=== PATIENT | male | born 1945 | race American Indian/Alaskan Native ===

== ENCOUNTER 2017-10-18 01:09 | Emergency (ER) | payer MEDICARE, MEDICAID ==
--- NOTE | 2017-10-18 01:24 | EDM.PDOC ---
ED HPI GENERAL MEDICAL PROBLEM - General Chief Complaint: Respiratory Problem Stated Complaint: DIFFICULTY BREATHING [id number] Time Seen by Provider: 10/18/17 01:21 Source of Information: Reports: Patient History Limitations: Reports: No Limitations - History of Present Illness INITIAL COMMENTS - FREE TEXT/NARRATIVE: 1 week h/o worsening sob unable lay down has to sit up. denies CP but tightness. spouse states they have appt' on 3rd for dialysis consideration due to his K-failing. - Related Data Allergies Allergy/AdvReac Type Severity Reaction Status Date / Time Penicillins Allergy Hives Verified 10/18/17 01:37 Home Meds: Home Meds Gabapentin [Neurontin] 1,200 cap PO BID 03/31/13 [History] Insulin Aspart [NovoLOG] 5 units SQ TID 03/31/13 [History] oxyCODONE 5 mg PO Q6HR PRN 03/31/13 [History] Simvastatin 20 mg PO DAILY 02/15/14 [History] traMADol [Ultram] 50 mg PO ASDIRECTED PRN 02/15/14 [History] Past Medical History - Past Health History Medical/Surgical History: Denies Medical/Surgical History Cardiovascular History: Reports: High Cholesterol Endocrine/Metabolic History: Reports: Diabetes, Type II Social & Family History - Living Situation & Occupation Living situation: Reports: , with Family Occupation: Disabled ED ROS GENERAL - Review of Systems Review Of Systems: ROS reveals no pertinent complaints other than HPI. ED EXAM, GENERAL - Physical Exam Exam: See Below Exam Limited By: No Limitations General Appearance: Alert, WD/WN, Mild Distress, Other ([place]) Ears: Hearing Grossly Normal Throat/Mouth: Normal Voice, No Airway Compromise Head: Atraumatic Neck: Non-Tender, Full Range of Motion Respiratory/Chest: No Accessory Muscle Use, Decreased Breath Sounds, Rales, Other (bilateral basilar) Cardiovascular: Regular Rate, Rhythm GI/Abdominal: Soft, Non-Tender Extremities: Other (bilateral 3+ edema) Neurological: Alert, Oriented, Normal Cognition, No Motor/Sensory Deficits, Other (gait limited to feet swelling) Psychiatric: Flat Affect Skin Exam: Warm, Dry, Normal Color Lymphatic: No Adenopathy Course - Vital Signs Last Recorded V/S: Last Vital Signs Temp 36.5 C 10/18/17 01:55 Pulse 101 H 10/18/17 01:55 Resp 17 10/18/17 01:55 BP 164/78 H 10/18/17 01:55 Pulse Ox 92 L 10/18/17 01:55 - Orders/Labs/Meds Orders: Active Orders 24 hr Category Date Time Status EKG 12 Lead [EKG Documentation Completion] [RC] STAT Care 10/18/17 01:54 Ordered B-TYPE NATRIURETIC PEPTIDE,BNP [CHEM] Stat Lab 10/18/17 01:22 Results COMPREHENSIVE METABOLIC PN,CMP [CHEM] Stat Lab 10/18/17 01:22 Results TROPONIN I [CHEM] Stat Lab 10/18/17 01:22 Results Labs: Laboratory Tests 10/18/17 10/18/17 10/18/17 Range/Units 01:22 01:22 01:22 WBC 6.0 (5.0-10.0) 10^3/uL RBC 3.67 L (4.6-6.2) 10^6/uL Hgb 10.8 L (14.0-18.0) g/dL Hct 33.2 L (40.0-54.0) % MCV 90.5 D (80-100) fL MCH 29.4 (27.0-34.0) pg MCHC 32.5 L (33.0-35.0) g/dL Plt Count 224 D (150-450) 10^3/uL Neut % (Auto) 62.4 (42.2-75.2) % Lymph % (Auto) 22.7 (20.5-50.1) % [place] % (Auto) 12.3 H (2-8) % Eos % (Auto) 2.3 (1.0-3.0) % Baso % (Auto) 0.3 (0.0-1.0) % Sodium 131 L (135-145) mmol/L Potassium 4.5 (3.6-5.0) mmol/L Chloride 104 (101-111) mmol/L Carbon Dioxide 20.0 L (21.0-31.0) mmol/L Anion Gap 11.5 BUN 39 H (7-18) mg/dL Creatinine 4.0 H D (0.6-1.3) mg/dL Est Cr Clr Drug Dosing 15.21 mL/min Estimated GFR (MDRD) 15 BUN/Creatinine Ratio 9.75 Glucose 165 H (74-105) mg/dL Lactic Acid 0.8 (0.5-2.2) mmol/L Calcium 8.3 L (8.4-10.2) mg/dl Total Bilirubin 0.5 (0.2-1.0) mg/dL AST 15 (10-42) IU/L ALT 10 (10-60) IU/L Alkaline Phosphatase 104 (42-121) IU/L B-Natriuretic Peptide 2780 H (0-100) pg/ml Total Protein 6.0 L (6.7-8.2) g/dl Albumin 2.7 L (3.2-5.5) g/dl Globulin 3.3 Albumin/Globulin Ratio 0.82 Meds: Medications Discontinued Medications Generic Name Dose Route Start Last Admin Trade Name Freq PRN Reason Stop Dose Admin Furosemide 40 mg 10/18/17 01:37 10/18/17 01:49 Lasix IVPUSH 10/18/17 01:38 40 mg NOW ONE Administration - Re-Assessments/Exams Free Text/Narrative Re-Assessment/Exam: 10/18/17 01:[address] Escobedo @ who kindly accepted pt. Departure - Departure Time of Disposition: 01:58 Disposition: DC/Tfer to [facility] 02 Condition: Fair Clinical Impression: Congenital heart disease in adult, Pulmonary edema cardiac cause Renal failure Qualifiers: Renal failure chronicity: unspecified chronicity Qualified Code(s): N19 - Unspecified kidney failure - Discharge Information Forms: Interfacility Transfer EMTALA - My Orders Last 24 Hours: My Active Orders 10/18/17 01:22 B-TYPE NATRIURETIC PEPTIDE,BNP [CHEM] Stat COMPREHENSIVE METABOLIC PN,CMP [CHEM] Stat TROPONIN I [CHEM] Stat 10/18/17 01:54 EKG 12 Lead [EKG Documentation Completion] [RC] STAT - Assessment/Plan Last 24 Hours: My Active Orders 10/18/17 01:22 B-TYPE NATRIURETIC PEPTIDE,BNP [CHEM] Stat COMPREHENSIVE METABOLIC PN,CMP [CHEM] Stat TROPONIN I [CHEM] Stat 10/18/17 01:54 EKG 12 Lead [EKG Documentation Completion] [RC] STAT
[2017-10-18] MEDS ORDERED: Furosemide 40 MG/4 ML VIAL IVPUSH ONE (01:37)
[2017-10-18 01:49] LABS: ANION GAP 11.5
[2017-10-18 01:57] VITALS: BP 164/78
--- NOTE | 2017-10-19 07:25 | EKG ---
10/18/2017- NEGIN AQUINO - EKG per my reading, shows sinus rhythm at the rate of 100 with inverted lateral T-waves. [facility] /[id number]
== END 2017-10-18 02:30 ==
LOC: DL.ED 01:09
DX: Q24.9 Congenital malformation of heart, unspecified (principal); E78.00 Pure hypercholesterolemia, unspecified; E11.9 Type 2 diabetes mellitus without complications; N19 Unspecified kidney failure; Z88.0 Allergy status to penicillin; Z79.899 Other long term (current) drug therapy; Z79.84 Long term (current) use of oral hypoglycemic drugs
CPT/HCPCS: 36415; 71045; 80053; 83605; 83880; 84484; 85025; 93005; 93010; 96374; 99285; J1940; 99284

== ENCOUNTER 2018-01-01 15:01 | Emergency (ER) | payer MEDICARE, MEDICAID ==
[2018-01-01 15:14] VITALS: BP 151/83
[2018-01-01] MEDS ORDERED: Sodium Chloride 0.9% 10 ML Syringe FLUSH PRN ×2 (15:44→17:46)
[2018-01-01 16:23] LABS: ANION GAP 12.9
--- NOTE | 2018-01-01 17:20 | EDM.PDOC ---
"Scribed by Monserrat Flores 01/01/18 1720 for Zhanna Devlin MD ED HPI GENERAL MEDICAL PROBLEM - General Chief Complaint: General Stated Complaint: DIZZY,HARD TO BREATH [id number] Time Seen by Provider: 01/01/18 15:11 Source of Information: Reports: Patient, RN, RN Notes Reviewed History Limitations: Reports: No Limitations - History of Present Illness INITIAL COMMENTS - FREE TEXT/NARRATIVE: Patient presents to ER with complaint of cough, loss of appetite, not eating or drinking, altered mental status and hallucinations. ERSA on dialysis. 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 He has missed dialysis 2 times this week (has not had dialysis since being discharged) . He has been coming to the hospital once daily at 2 p.m. for IV antibiotics. Family states that the patient has been seeing and talking to relatives. He fell on 12/30/17 at home in his bathroom and hit his head. They do not know if he lost consciousness. His confusion has been worse since hitting his head. Denies any fevers and chills. Cough has been nonproductive. Patient cannot give a reliable due to confusion. History is obtained from family members. Onset: Gradual Duration: Getting Worse Location: Reports: Generalized Severity: Severe Improves with: Reports: None Worsens with: Reports: None Associated Symptoms: Reports: No Other Symptoms - Related Data Allergies Allergy/AdvReac Type Severity Reaction Status Date / Time Penicillins Allergy Hives Verified 12/28/17 14:30 Home Meds: Home Meds Insulin Aspart [NovoLOG] 8 units SQ TID 03/31/13 [History] Simvastatin 20 mg PO DAILY 02/15/14 [History] traMADol [Ultram] 50 mg PO ASDIRECTED PRN 02/15/14 [History] Acetaminophen/oxyCODONE [Percocet 325-10 MG] 10 - 325 mg PO ASDIRECTED 12/28/17 [History] Aspirin 81 mg PO DAILY 12/28/17 [History] Carvedilol 25 mg PO DAILY 12/28/17 [History] Cyanocobalamin/FA/Pyridoxine [B Complex-Folic Acid] 1 cap PO DAILY 12/28/17 [ History] Gabapentin [Neurontin] 1,200 mg PO TID 12/28/17 [History] Insulin Glargine,Hum.Rec.Anlog [Lantus Solostar] 15 unit SQ DAILY 12/28/17 [ History] Losartan [Cozaar] 25 mg PO DAILY 12/28/17 [History] Past Medical History - Past Health History Medical/Surgical History: Denies Medical/Surgical History HEENT History: Reports: Cataract, Impaired Vision Cardiovascular History: Reports: High Cholesterol Gastrointestinal History: Reports: GERD Genitourinary History: Reports: Acute Renal Failure, Dialysis, Other (See Below) Other Genitourinary History: Starting dialysis on the Oct. Endocrine/Metabolic History: Reports: Diabetes, Type II - Past Surgical History Head Surgeries/Procedures: Reports: Shunt, Other (See Below) HEENT Surgical History: Reports: Cataract Surgery Social & Family History - Family History Family Medical History: Noncontributory - Caffeine Use Caffeine Use: Reports: None - Living Situation & Occupation Living situation: Reports: , with Family Occupation: Disabled ED ROS GENERAL - Review of Systems Review Of Systems: ROS reveals no pertinent complaints other than HPI. ED EXAM, GENERAL - Physical Exam Exam: See Below Exam Limited By: No Limitations General Appearance: Alert, Thin, Cachetic, Other (chronically ill appearing) Eye Exam: Bilateral Eye: EOMI, Nystagmus, PERRL Ears: Normal External Exam Nose: Normal Inspection, Normal Mucosa, No Blood Throat/Mouth: Normal Voice, No Airway Compromise, Other (very dry oral membranes. ) Head: Atraumatic, Normocephalic Neck: Normal Inspection, Supple, Non-Tender, Full Range of Motion Respiratory/Chest: No Respiratory Distress, No Accessory Muscle Use, Chest Non- Tender, Decreased Breath Sounds, Crackles, Rales. No: Rhonchi, Wheezing Cardiovascular: Regular Rate, Rhythm, No Edema GI/Abdominal: Normal Bowel Sounds, Soft, No Distention, Pelvis Stable, Tender ( mild diffuse abdominal tenderness,no peritoneal signs. ). No: Guarding, Rigid, Rebound (Male) Exam: Deferred Rectal (Males) Exam: Deferred Extremities: Normal Inspection, No Pedal Edema Neurological: Alert, Oriented (to person only), No Motor/Sensory Deficits, Confused, Disoriented (to time and place), Other (generalized weakness) Psychiatric: Flat Affect Skin Exam: Dry, Intact, Cool, Pallor EKG INTERPRETATION EKG Date: 01/01/18 Time: 15:47 Rhythm: Other (sinus rhythm) Rate (Beats/Min): 91 [place]: Normal P-Wave: Present QRS: Other (abnormal R progression, consider ASMI or lead placement) ST-T: Other (nonspecific T abnormalities, lateral leads.) QT: Normal [place]/PQ Interval: short [place] interval,accelerated AV conduction. Course - Vital Signs Last Recorded V/S: Last Vital Signs Temp 36.2 C 01/01/18 15:13 Pulse 90 01/01/18 15:13 Resp 10 L 01/01/18 15:13 BP 151/83 H 01/01/18 15:13 Pulse Ox 79 L 01/01/18 15:13 - Orders/Labs/Meds Orders: Active Orders 24 hr Category Date Time Status EKG 12 Lead [EKG Documentation Completion] [RC] STAT Care 01/01/18 15:45 Active Peripheral IV Care [RC] . DIRECTED Care 01/01/18 15:45 Active Chest 1V Frontal [CR] Stat Exams 01/01/18 15:45 Taken Head wo Cont [CT] Stat Exams 01/01/18 15:47 Taken Sodium Chloride 0.9% [Saline Flush] Med 01/01/18 15:44 Active 10 ml FLUSH ASDIRECTED PRN Peripheral IV Insertion Adult [OM.PC] Stat Oth 01/01/18 15:44 Ordered Medication Orders Sodium Chloride (Saline Flush) 10 ml FLUSH ASDIRECTED PRN PRN Reason: Keep Vein Open Last Admin: 01/01/18 17:00 Dose: 10 ml Labs: Laboratory Tests 01/01/18 01/01/18 Range/Units 15:56 15:56 WBC 6.3 (5.0-10.0) 10^3/uL RBC 3.57 L (4.6-6.2) 10^6/uL Hgb 10.0 L (14.0-18.0) g/dL Hct 32.1 L (40.0-54.0) % MCV 89.9 (80-100) fL MCH 28.0 (27.0-34.0) pg MCHC 31.2 L (33.0-35.0) g/dL Plt Count 235 (150-450) 10^3/uL Neut % (Auto) 73.3 (42.2-75.2) % Lymph % (Auto) 17.4 L (20.5-50.1) % [place] % (Auto) 7.4 (2-8) % Eos % (Auto) 1.6 (1.0-3.0) % Baso % (Auto) 0.3 (0.0-1.0) % Sodium 131 L (135-145) mmol/L Potassium 4.9 (3.6-5.0) mmol/L Chloride 98 L (101-111) mmol/L Carbon Dioxide 25.0 (21.0-31.0) mmol/L Anion Gap 12.9 BUN 38 H (7-18) mg/dL Creatinine 3.7 H (0.6-1.3) mg/dL Est Cr Clr Drug Dosing 15.27 mL/min Estimated GFR (MDRD) 16 BUN/Creatinine Ratio 10.27 Glucose 177 H (74-105) mg/dL Calcium 8.7 (8.4-10.2) mg/dl Phosphorus 3.7 (2.5-4.6) mg/dL Magnesium 1.9 (1.8-2.5) mg/dL Total Bilirubin 0.4 (0.2-1.0) mg/dL AST 15 (10-42) IU/L ALT 14 (10-60) IU/L Alkaline Phosphatase 94 (42-121) IU/L B-Natriuretic Peptide 4200 H (0-100) pg/ml Total Protein 6.3 L (6.7-8.2) g/dl Albumin 2.5 L (3.2-5.5) g/dl Globulin 3.8 Albumin/Globulin Ratio 0.66 Meds: Medications Generic Name Dose Route Start Last Admin Trade Name Freq PRN Reason Stop Dose Admin Sodium Chloride 10 ml 01/01/18 15:44 01/01/18 17:00 Saline Flush FLUSH 10 ml ASDIRECTED PRN Administration Keep Vein Open - Radiology Interpretation Free Text/Narrative:: [facility] Final Radiology Report Call: [phone] assistance Online chat: [email or web address] Name: NEGIN AQUINO Age: 72Years M Date: 01/01/2018 SSN: -- : 1945 Study: CT HEAD WO Requesting Physician: ZHANNA DEVLIN Images: 144 Addl Studies: Provided Clinical History: Contrast: Without Contrast Medium: Contrast Amount: Contrast Method: Page 1 of 2 EXAM: CT Head Without Intravenous Contrast EXAM DATE/TIME: 01/01/2018 4:11 PM CLINICAL HISTORY: 72 years old, male; Signs and symptoms; Other: Confused since fall w/head injury on 12/30/17 TECHNIQUE: Axial computed tomography images of the head/brain without intravenous contrast. All CT scans at this facility use at least one of these dose optimization techniques: automated exposure control; mA and/or kV adjustment per patient size (includes targeted exams where dose is matched to clinical indication); or iterative reconstruction. Coronal and sagittal reformatted images were created and reviewed. COMPARISON: CT Head wo Cont 02/15/2014 1:03 PM FINDINGS: Brain: There is parenchymal volume loss consistent with patient's age. Also demonstrated are white matter changes in the subcortical, centrum semiovale and periventricular white matter consistent with age related small vessel microangiopathic gliosis. Chronic lacunar infarct right paraventricular region. Ventricles: The degree of ventricular dilatation is normal for age. No pathologic enlargement demonstrated. Bones/joints: Normal. No acute fracture. Sinuses: Normal as visualized. No acute sinusitis. Mastoid air cells: Normal as visualized. No mastoid effusion. Soft tissues: Normal. IMPRESSION: NEGIN AQUINO | Final Radiology Report CONFIDENTIALITY STATEMENT This report is intended only for use by the referring physician, and only in accordance with law. If you received this in error, call [phone]. Page 2 of 2 1. There is parenchymal volume loss consistent with patient's age. Also demonstrated are white matter changes in the subcortical, centrum semiovale and periventricular white matter consistent with age related small vessel microangiopathic gliosis. 2. Chronic lacunar infarct right paraventricular region. Thank you for allowing us to participate in the care of your patient. Dictated and Authenticated by: Jim Faulkner MD 01/01/2018 5:16 PM Central Time ([place] & [place]) [facility] Final Radiology Report Call: [phone] assistance Online chat: [email or web address] Name: NEGIN AQUINO Age: 72Years M Date: 01/01/2018 SSN: -- : 1945 Study: XR CHEST 1 VIEW Requesting Physician: ZHANNA DEVLIN Images: 1 Addl Studies: Provided Clinical History: Contrast: Contrast Medium: Contrast Amount: Contrast Method: CONFIDENTIALITY STATEMENT This report is intended only for use by the referring physician, and only in accordance with law. If you received this in error, call [phone]. Page 1 of 1 EXAM: XR Chest, 1 View EXAM DATE/TIME: 01/01/2018 4:16 PM CLINICAL HISTORY: 72 years old, male; Signs and symptoms; Cough and other: Weakness--esrd missed dialysis twice this week TECHNIQUE: XR of the chest, 1 view. COMPARISON: CR Chest 1V Frontal 10/18/2017 1:30 AM FINDINGS: Lungs: Bibasilar infiltrates. Pleural space: Bilateral pleural effusions. Heart/Mediastinum: Unremarkable. No cardiomegaly. Vasculature: Cephalization of vascular flow consistent with acute CHF. Bones/joints: Unremarkable for patient's age. IMPRESSION: Pleural effusions, bibasilar infiltrates, cephalization of vascular flow consistent with acute CHF. Thank you for allowing us to participate in the care of your patient. Dictated and Authenticated by: Jim Faulkner MD 01/01/2018 5:17 PM Central Time ([place] & [place]) CT Results Date: 01/01/18 Departure - Departure Time of Disposition: 17:04 Disposition: DC/Tfer to Acute Hospital 02 Condition: Serious Clinical Impression: ESRD (end stage renal disease) on dialysis, Noncompliance with renal dialysis, Hypoxia Fluid overload Qualifiers: Hypervolemia type: unspecified Qualified Code(s): E87.70 - Fluid overload, unspecified Altered mental status Qualifiers: Altered mental status type: transient alteration of awareness Qualified Code(s) : R40.4 - Transient alteration of awareness Acute on chronic congestive heart failure Qualifiers: Heart failure type: unspecified Qualified Code(s): I50.9 - Heart failure, unspecified - Discharge Information *PRESCRIPTION DRUG MONITORING PROGRAM REVIEWED*: No *COPY OF PRESCRIPTION DRUG MONITORING REPORT IN PATIENT ANTON: No Referrals: PCP,None [Ordering Only Provider] - Forms: ED Department Discharge, Interfacility Transfer EMTALA - My Orders Last 24 Hours: My Active Orders 01/01/18 15:44 Sodium Chloride 0.9% [Saline Flush] 10 ml FLUSH ASDIRECTED PRN Peripheral IV Insertion Adult [OM.PC] Stat 01/01/18 15:45 EKG 12 Lead [EKG Documentation Completion] [RC] STAT Peripheral IV Care [RC] . DIRECTED Chest 1V Frontal [CR] Stat 01/01/18 15:47 Head wo Cont [CT] Stat - Assessment/Plan Last 24 Hours: My Active Orders 01/01/18 15:44 Sodium Chloride 0.9% [Saline Flush] 10 ml FLUSH ASDIRECTED PRN Peripheral IV Insertion Adult [OM.PC] Stat 01/01/18 15:45 EKG 12 Lead [EKG Documentation Completion] [RC] STAT Peripheral IV Care [RC] . DIRECTED Chest 1V Frontal [CR] Stat 01/01/18 15:47 Head wo Cont [CT] Stat I have read and agree with the documentation that has been completed regarding this visit. By signing this record, I attest that the documentation was completed in my physical presence and is an accurate record of the encounter."
[2018-01-01] MEDS ORDERED: fentaNYL 100 MCG/2 ML SDV IVPUSH ONE (17:45)
[2018-01-01] MEDS ORDERED: Ondansetron 4 MG/2 ML SDV IV ONE (17:45)
[2018-01-01] MEDS ORDERED: Sodium Chloride 0.9% 1,000 ML IV ONE (17:45)
== END 2018-01-01 19:22 ==
LOC: DL.ED 15:01
DX: R09.02 Hypoxemia (principal); N18.6 End stage renal disease; I50.9 Heart failure, unspecified; E87.70 Fluid overload, unspecified; E11.22 Type 2 diabetes mellitus with diabetic chronic kidney disease; R40.4 Transient alteration of awareness; Z91.15 Patient's noncompliance with renal dialysis; Z99.2 Dependence on renal dialysis; Z88.0 Allergy status to penicillin
CPT/HCPCS: 36415; 70450; 71045; 80053; 83735; 83880; 84100; 85025; 93005; 99285; J7050

== ENCOUNTER 2018-09-06 13:45 | Emergency (ER) | payer MEDICARE, MEDICAID ==
[2018-09-06 14:05] VITALS: BP 154/61
--- NOTE | 2018-09-06 14:16 | EDM.PDOC ---
ED HPI GENERAL MEDICAL PROBLEM - General Chief Complaint: Abdominal Pain Stated Complaint: Constipation Time Seen by Provider: 09/06/18 14:16 Source of Information: Reports: Patient, Family, Old Records, RN, RN Notes Reviewed History Limitations: Reports: No Limitations - History of Present Illness INITIAL COMMENTS - FREE TEXT/NARRATIVE: Pt presents to ER from home by POV with c/o constipation and abdominal "fullness ". Pt thinks his last BM was about 4 days ago and was hard. He denies significant abdominal pain, N/V, or rectal bleeding. Pt has ESRD on dialysis Mon /Wed/Fri, and has not missed any dialysis. He was recently discharged home from the assisted, but a family member has called social media manager to report that the pt is a "vulnerable adult" and is not able to be safely managed at home. A social insurance adviser will be coming to interview the pt and family in the ER. Onset: Unknown/Unsure Duration: Constant Location: Reports: Abdomen Quality: Reports: Other (Cramps) Severity: Mild Improves with: Reports: None Worsens with: Reports: None Associated Symptoms: Reports: No Other Symptoms Abdomen Pain Score (Numeric/FACES): 6 - Related Data Allergies Allergy/AdvReac Type Severity Reaction Status Date / Time Penicillins Allergy Hives Verified 09/06/18 13:59 Home Meds: Home Meds Acetaminophen/oxyCODONE [Percocet 325-10 MG] 10 - 325 mg PO ASDIRECTED 12/28/17 [History] Cyanocobalamin/FA/Pyridoxine [B Complex-Folic Acid] 1 cap PO DAILY 12/28/17 [ History] Gabapentin [Neurontin] 300 mg PO BID 12/28/17 [History] Sevelamer Carbonate 800 mg PO TID 09/06/18 [History] Torsemide [Demadex] 40 mg PO DAILY 09/06/18 [History] Past Medical History - Past Health History Medical/Surgical History: Denies Medical/Surgical History HEENT History: Reports: Cataract, Impaired Vision Cardiovascular History: Reports: High Cholesterol Respiratory History: Reports: None Gastrointestinal History: Reports: GERD Genitourinary History: Reports: Acute Renal Failure, Dialysis, Other (See Below) Other Genitourinary History: Starting dialysis on the Oct. Other Musculoskeletal History: left lower leg amputated Neurological History: Reports: None Psychiatric History: Reports: None Endocrine/Metabolic History: Reports: Diabetes, Type II Hematologic History: Reports: None Immunologic History: Reports: None Oncologic (Cancer) History: Reports: None Dermatologic History: Reports: None - Past Surgical History Head Surgeries/Procedures: Reports: Shunt, Other (See Below) HEENT Surgical History: Reports: Cataract Surgery Musculoskeletal Surgical History: Reports: Amputation Social & Family History - Family History Family Medical History: Noncontributory - Tobacco Use Smoking Status *Q: Current Every Day Smoker Years of Tobacco use: 53 Packs/Tins Daily: 0.5 Second Hand Smoke Exposure: No - Caffeine Use Caffeine Use: Reports: Coffee - Recreational Drug Use Recreational Drug Use: No - Living Situation & Occupation Living situation: Reports: , with Family Occupation: Disabled ED ROS GENERAL - Review of Systems Review Of Systems: ROS reveals no pertinent complaints other than HPI. ED EXAM, GI/ABD - Physical Exam Exam: See Below Exam Limited By: No Limitations General Appearance: Alert, No Apparent Distress, Other (Frail, elderly appearing male) Throat/Mouth: Normal Inspection, Normal Voice, No Airway Compromise Head: Atraumatic, Normocephalic Neck: Normal Inspection Respiratory/Chest: No Respiratory Distress, Lungs Clear, No Accessory Muscle Use , Decreased Breath Sounds Cardiovascular: Regular Rate, Rhythm GI/Abdominal Exam: Normal Bowel Sounds, Soft, No Distention, No Abnormal Bruit, Tender (mild left sided abdomen). No: Guarding, Rigid, Rebound (Male) Exam: Deferred Rectal (Males) Exam: Deferred Back Exam: Normal Inspection Extremities: Normal Inspection Neurological: Alert, Oriented, No Motor/Sensory Deficits Psychiatric: Normal Mood Skin Exam: Warm, Dry, Intact, Normal Color, No Rash Course - Vital Signs Last Recorded V/S: Last Vital Signs Temp 98.2 F 09/06/18 14:04 Pulse 86 09/06/18 14:04 Resp 20 09/06/18 14:04 BP 154/61 H 09/06/18 14:04 Pulse Ox 100 09/06/18 14:04 - Orders/Labs/Meds Orders: Active Orders 24 hr Category Date Time Status Enema [RC] ASDIRECTED Care 09/06/18 15:11 Active UA RFX CHARISSA AND CULT IF INDIC [URIN] Stat Lab 09/06/18 14:17 Ordered Labs: Laboratory Tests 09/06/18 09/06/18 Range/Units 14:42 14:42 WBC 7.2 (5.0-10.0) 10^3/uL RBC 3.37 L (4.6-6.2) 10^6/uL Hgb 10.1 L (14.0-18.0) g/dL Hct 31.5 L (40.0-54.0) % MCV 93.5 D (80-100) fL MCH 30.0 (27.0-34.0) pg MCHC 32.1 L (33.0-35.0) g/dL Plt Count 193 (150-450) 10^3/uL Neut % (Auto) 73.7 (42.2-75.2) % Lymph % (Auto) 12.2 L (20.5-50.1) % [place] % (Auto) 11.0 H (2-8) % Eos % (Auto) 2.5 (1.0-3.0) % Baso % (Auto) 0.6 (0.0-1.0) % Sodium 138 (135-145) mmol/L Potassium 4.1 (3.6-5.0) mmol/L Chloride 100 L (101-111) mmol/L Carbon Dioxide 26.0 (21.0-31.0) mmol/L Anion Gap 16.1 BUN 33 H (7-18) mg/dL Creatinine 4.1 H (0.6-1.3) mg/dL Est Cr Clr Drug Dosing 15.23 mL/min Estimated GFR (MDRD) 14 BUN/Creatinine Ratio 8.04 Glucose 206 H (74-105) mg/dL Calcium 8.6 (8.4-10.2) mg/dl Total Bilirubin 0.5 (0.2-1.0) mg/dL AST 16 (10-42) IU/L ALT 13 (10-60) IU/L Alkaline Phosphatase 100 (42-121) IU/L Total Protein 6.3 L (6.7-8.2) g/dl Albumin 3.0 L (3.2-5.5) g/dl Globulin 3.3 Albumin/Globulin Ratio 0.91 Amylase 32 (28-100) U/L Lipase 28 (22-51) U/L Meds: Medications Discontinued Medications Generic Name Dose Route Start Last Admin Trade Name Freq PRN Reason Stop Dose Admin Lactulose 20 gm 09/06/18 15:10 09/06/18 16:08 Cephulac PO 09/06/18 15:11 20 gm ONETIME ONE Administration - Radiology Interpretation Free Text/Narrative:: [facility] [place] [facility] Final Radiology Report Call: [phone] assistance Online chat: [email or web address] Name: NEGIN AQUINO Age: 73Years M Date: 09/06/2018 SSN: -- : [id number] Study: XR ABDOMEN COMPLETE W DECUBITUS &/OR ERECT VIEWS Requesting Physician: ZHANNA STEVENS Images: 3 Addl Studies: Provided Clinical History: Contrast: Contrast Medium: Contrast Amount: Contrast Method: Page 1 of 2 EXAM: XR Abdomen, 3 or More Views EXAM DATE/TIME: 09/06/2018 2:22 PM CLINICAL HISTORY: 73 years old, male; Pain and signs and symptoms; Constipation; Abdominal pain; Generalized TECHNIQUE: Imaging protocol: Frontal view of the abdomen/pelvis with upright view of the abdomen and one or more additional views. COMPARISON: No relevant prior studies available. FINDINGS: Gastrointestinal tract: Moderate feces is present throughout the colon. No significant distention of the large or small bowel. Intraperitoneal space: Normal. No free air. Bones/joints: Sclerosis is noted within the right femoral neck. IMPRESSION: 1. No acute findings are appreciated. 2. Sclerosis is noted within the right femoral neck. Recommend radiographs of the right hip for further evaluation Thank you for allowing us to participate in the care of your patient. NEGIN AQUINO | Final Radiology Report CONFIDENTIALITY STATEMENT This report is intended only for use by the referring physician, and only in accordance with law. If you received this in error, call [phone]. Page 2 of 2 Dictated and Authenticated by: Dennis Marroquin MD 09/06/2018 2:49 PM Central Time ([place] & [place]) - Re-Assessments/Exams Free Text/Narrative Re-Assessment/Exam: 09/06/18 17:49 Pt had large BM following enema. Pt feels well and wishes to be d/c'd home. residential worker finds that pt may be safely d/c'd home at this time and will continue working with the pt and family to find the best solution for his long term care pharmacist care and housing needs. Departure - Departure Time of Disposition: 17:52 Disposition: Home, Self-Care 01 Condition: Good Clinical Impression: Constipation Qualifiers: Constipation type: other constipation type Qualified Code(s): K59.09 - Other constipation - Discharge Information *PRESCRIPTION DRUG MONITORING PROGRAM REVIEWED*: No *COPY OF PRESCRIPTION DRUG MONITORING REPORT IN PATIENT ANTON: No Instructions: Constipation, Adult, High-Fiber Diet Forms: ED Department Discharge Additional Instructions: Use an over the counter stool softener as needed. Follow up in clinic if constipation becomes an ongoing problem. Return to ER if worse at any time. - My Orders Last 24 Hours: My Active Orders 09/06/18 14:17 UA RFX CHARISSA AND CULT IF INDIC [URIN] Stat 09/06/18 15:11 Enema [RC] ASDIRECTED - Assessment/Plan Last 24 Hours: My Active Orders 09/06/18 14:17 UA RFX CHARISSA AND CULT IF INDIC [URIN] Stat 09/06/18 15:11 Enema [RC] ASDIRECTED
[2018-09-06] MEDS ORDERED: Lactulose Soln 10 GM/15 ML 30 ML UD Cup PO ONE (15:10)
[2018-09-06 15:12] LABS: ANION GAP 16.1
== END 2018-09-06 15:50 | disposition home or self-care (01) ==
LOC: DL.ED 13:45
DX: K59.09 Other constipation (principal); E78.00 Pure hypercholesterolemia, unspecified; K21.9 Gastro-esophageal reflux disease without esophagitis; E11.9 Type 2 diabetes mellitus without complications; F17.210 Nicotine dependence, cigarettes, uncomplicated; Z88.0 Allergy status to penicillin; Z79.899 Other long term (current) drug therapy
CPT/HCPCS: 36415; 74021; 80053; 82150; 83690; 85025; 99284; A9270

== ENCOUNTER 2019-01-20 13:30 | Emergency (ER) | payer MEDICARE, MEDICAID ==
[2019-01-20 15:08] VITALS: BP 153/89; PULSE 89
--- NOTE | 2019-01-20 16:01 | EDM.PDOC ---
ED HPI GENERAL MEDICAL PROBLEM - General Chief Complaint: Abdominal Pain Stated Complaint: UPSET STOMACH Time Seen by Provider: 01/20/19 16:01 Source of Information: Reports: Patient, Family, RN, RN Notes Reviewed History Limitations: Reports: No Limitations - History of Present Illness INITIAL COMMENTS - FREE TEXT/NARRATIVE: patient presents to the ER with a complaint of sore upset stomach for 3 days. Patient admits to shortness of breath, fever, chills at times. Patient states he is on chronic hemodialysis, last dialysis was Tuesday 01/16. Patient denies N/ V/D,chest pain, cough. Patient states last BM was this morning and was normal for him. Onset: Gradual Upper Abdomen Pain Score (Numeric/FACES): 6 - Related Data Allergies Allergy/AdvReac Type Severity Reaction Status Date / Time Penicillins Allergy Hives Verified 01/20/19 14:24 Home Meds: Home Meds Acetaminophen/oxyCODONE [Percocet 325-10 MG] 10 - 325 mg PO ASDIRECTED 12/28/17 [History] Cyanocobalamin/FA/Pyridoxine [B Complex-Folic Acid] 1 cap PO DAILY 12/28/17 [ History] Gabapentin [Neurontin] 300 mg PO BID 12/28/17 [History] Sevelamer Carbonate 800 mg PO TID 09/06/18 [History] Torsemide [Demadex] 40 mg PO DAILY 09/06/18 [History] Past Medical History - Past Health History Medical/Surgical History: Denies Medical/Surgical History HEENT History: Reports: Cataract, Impaired Vision Cardiovascular History: Reports: High Cholesterol Respiratory History: Reports: None Gastrointestinal History: Reports: GERD Genitourinary History: Reports: Acute Renal Failure, Dialysis, Other (See Below) Other Genitourinary History: Starting dialysis on the Oct. Other Musculoskeletal History: left lower leg amputated Neurological History: Reports: None Psychiatric History: Reports: None Endocrine/Metabolic History: Reports: Diabetes, Type II Hematologic History: Reports: None Immunologic History: Reports: None Oncologic (Cancer) History: Reports: None Dermatologic History: Reports: None - Past Surgical History Head Surgeries/Procedures: Reports: Shunt, Other (See Below) HEENT Surgical History: Reports: Cataract Surgery Musculoskeletal Surgical History: Reports: Amputation Social & Family History - Family History Family Medical History: Noncontributory - Tobacco Use Smoking Status *Q: Current Every Day Smoker Years of Tobacco use: 50 Packs/Tins Daily: 1.5 - Caffeine Use Caffeine Use: Reports: Coffee - Recreational Drug Use Recreational Drug Use: No - Living Situation & Occupation Living situation: Reports: , with Family Occupation: Disabled ED ROS GENERAL - Review of Systems Review Of Systems: ROS reveals no pertinent complaints other than HPI. ED EXAM, GI/ABD - Physical Exam Exam: See Below Exam Limited By: No Limitations General Appearance: Alert, WD/WN, No Apparent Distress Eyes: Bilateral: Normal Appearance, EOMI Ears: Normal External Exam, Hearing Grossly Normal Nose: Normal Inspection, Normal Mucosa, No Blood Throat/Mouth: Normal Inspection, Normal Lips, Normal Teeth, Normal Gums, Normal Oropharynx, Normal Voice, No Airway Compromise Head: Atraumatic, Normocephalic Neck: Normal Inspection, Supple, Non-Tender, Full Range of Motion Respiratory/Chest: No Respiratory Distress, Normal Breath Sounds, No Accessory Muscle Use, Chest Non-Tender, Crackles (bases bilaterally) Cardiovascular: Normal Peripheral Pulses, Regular Rate, Rhythm, No Edema, No Gallop, No JVD, No Murmur, No Rub GI/Abdominal Exam: Normal Bowel Sounds, Soft, Non-Tender, No Organomegaly, No Distention, No Abnormal Bruit, No Mass, Pelvis Stable (Male) Exam: Deferred Rectal (Males) Exam: Deferred Back Exam: Normal Inspection, Full Range of Motion, NT Extremities: Normal Inspection, Normal Range of Motion, Non-Tender, No Pedal Edema, Normal Capillary Refill, Other (left BKA) Neurological: Alert, Oriented, CN II-XII Intact, Normal Cognition, Normal Gait, Normal Reflexes, No Motor/Sensory Deficits Psychiatric: Normal Affect, Normal Mood Skin Exam: Warm, Dry, Intact, Normal Color, No Rash Lymphatic: No Adenopathy Course - Vital Signs Last Recorded V/S: Last Vital Signs Temp 98.3 F 01/20/19 13:45 Pulse 89 01/20/19 13:45 Resp 16 01/20/19 13:45 BP 153/89 H 01/20/19 13:45 Pulse Ox 97 01/20/19 13:45 - Orders/Labs/Meds Orders: Active Orders 24 hr Category Date Time Status Peripheral IV Care [RC] . DIRECTED Care 01/20/19 17:20 Active Peripheral IV Insertion Adult [OM.PC] Stat Oth 01/20/19 17:20 Ordered Labs: Laboratory Tests 01/20/19 01/20/19 Range/Units 16:16 16:16 WBC 5.2 (5.0-10.0) 10^3/uL RBC 3.75 L (4.6-6.2) 10^6/uL Hgb 11.7 L D (14.0-18.0) g/dL Hct 35.4 L (40.0-54.0) % MCV 94.4 (80-100) fL MCH 31.2 (27.0-34.0) pg MCHC 33.1 (33.0-35.0) g/dL Plt Count 179 (150-450) 10^3/uL Neut % (Auto) 68.4 (42.2-75.2) % Lymph % (Auto) 18.7 L (20.5-50.1) % [place] % (Auto) 9.8 H (2-8) % Eos % (Auto) 2.1 (1.0-3.0) % Baso % (Auto) 1.0 (0.0-1.0) % Sodium 131 L (135-145) mmol/L Potassium 5.1 H (3.6-5.0) mmol/L Chloride 95 L (101-111) mmol/L Carbon Dioxide 25.0 (21.0-31.0) mmol/L Anion Gap 16.1 BUN 45 H (7-18) mg/dL Creatinine 5.4 H D (0.6-1.3) mg/dL Est Cr Clr Drug Dosing TNP Estimated GFR (MDRD) 10 BUN/Creatinine Ratio 8.33 Glucose 134 H (74-105) mg/dL Calcium 9.1 (8.4-10.2) mg/dl Total Bilirubin 1.0 (0.2-1.0) mg/dL AST 18 (10-42) IU/L ALT 14 (10-60) IU/L Alkaline Phosphatase 111 (42-121) IU/L B-Natriuretic Peptide 4030 H (0-100) pg/ml Total Protein 7.0 (6.7-8.2) g/dl Albumin 3.7 (3.2-5.5) g/dl Globulin 3.3 Albumin/Globulin Ratio 1.12 Meds: Medications Discontinued Medications Generic Name Dose Route Start Last Admin Trade Name Ashley PRN Reason Stop Dose Admin Bumetanide 4 mg 01/20/19 17:20 01/20/19 17:42 Bumex IVPUSH 01/20/19 17:21 4 mg ONETIME ONE Administration Sodium Chloride 10 ml 01/20/19 17:20 01/20/19 17:49 Saline Flush FLUSH 10 ml ASDIRECTED PRN Administration Keep Vein Open - Radiology Interpretation Free Text/Narrative:: Chest xray: FINDINGS: Lungs: Persistent unchanged moderate interstitial edema. Basilar opacities are unchanged. Pleural space: Unremarkable. Possible small left pleural effusion. No pneumothorax. Heart/Mediastinum: Unremarkable. No cardiomegaly. Bones/joints: Unremarkable. IMPRESSION: 1. No significant change. Persistent moderate interstitial edema. 2. Basilar opacities most likely represent consolidation or atelectasis, less likely air space disease related to edema. Thank you for allowing us to participate in the care of your patient. Dictated and Authenticated by: Damian Ortiz MD 01/20/2019 4:27 PM Central Time ([place] & [place]) See rad report - Re-Assessments/Exams Free Text/Narrative Re-Assessment/Exam: 01/20/19 17:19 discussed patient case with Dr. HOROWITZ. he states to give the patient IV diuretic while in the ER and he may be discharged home to follow-up with dialysis tomorrow. Departure - Departure Time of Disposition: 17:45 Disposition: Home, Self-Care 01 Condition: Fair Clinical Impression: CKD (chronic kidney disease) requiring chronic dialysis, Stomach pain, Hyperkalemia CHF (congestive heart failure) Qualifiers: Heart failure type: other Qualified Code(s): I50.9 - Heart failure, unspecified - Discharge Information *PRESCRIPTION DRUG MONITORING PROGRAM REVIEWED*: No *COPY OF PRESCRIPTION DRUG MONITORING REPORT IN PATIENT ANTON: No Instructions: Dialysis Diet, [id number], Heart Failure, [id number], Hemodialysis, [id number] Referrals: PCP,Unobtain [Primary Care Provider] - Forms: ED Department Discharge Additional Instructions: Take double doses of diuretics i.e. Lasix today and tomorrow Very important that you go to dialysis tomorrow Do not eat high potassium foods Limit fluid intake - My Orders Last 24 Hours: My Active Orders 01/20/19 17:20 Peripheral IV Care [RC] . DIRECTED Peripheral IV Insertion Adult [OM.PC] Stat - Assessment/Plan Last 24 Hours: My Active Orders 01/20/19 17:20 Peripheral IV Care [RC] . DIRECTED Peripheral IV Insertion Adult [OM.PC] Stat
[2019-01-20 16:42] LABS: ANION GAP 16.1; CHLORIDE,CL 95 mmol/L (101-111); SODIUM,NA 131 mmol/L (135-145)
[2019-01-20] MEDS ORDERED: Bumetanide 1 MG/4 ML MDV IVPUSH ONE (17:20)
[2019-01-20] MEDS ORDERED: Sodium Chloride 0.9% 10 ML Syringe FLUSH PRN (17:20)
== END 2019-01-20 18:23 | disposition home or self-care (01) ==
LOC: DL.ED 13:30
DX: R10.10 Upper abdominal pain, unspecified (principal); E87.5 Hyperkalemia; E11.22 Type 2 diabetes mellitus with diabetic chronic kidney disease; N18.6 End stage renal disease; I50.9 Heart failure, unspecified; F17.210 Nicotine dependence, cigarettes, uncomplicated; Z99.2 Dependence on renal dialysis; Z88.0 Allergy status to penicillin; Z79.899 Other long term (current) drug therapy
CPT/HCPCS: 36415; 71045; 80053; 83880; 85025; 96374; 99284; J3490

== ENCOUNTER 2019-06-09 03:00 | Emergency (ER) | payer MEDICARE, MEDICAID ==
--- NOTE | 2019-06-09 02:44 | EDM.PDOC ---
<Day George - Last Filed: 06/09/19 05:22> ED HPI GENERAL MEDICAL PROBLEM - General Stated Complaint: AMBULANCE Time Seen by Provider: 06/09/19 02:41 Source of Information: Reports: Patient, EMS History Limitations: Reports: No Limitations - History of Present Illness INITIAL COMMENTS - FREE TEXT/NARRATIVE: ED with c/o SOB. No dialysis x one week patient report he didn't feel good so did not go. Unsure exaclty last we, daughter thinks last Wednesday. No vomiting, No c/o chest pain, No cough. - Related Data Allergies Allergy/AdvReac Type Severity Reaction Status Date / Time Penicillins Allergy Hives Verified 01/20/19 14:24 Home Meds: Home Meds Acetaminophen/oxyCODONE [Percocet 325-10 MG] 10 - 325 mg PO ASDIRECTED 12/28/17 [History] Cyanocobalamin/FA/Pyridoxine [B Complex-Folic Acid] 1 cap PO DAILY 12/28/17 [ History] Gabapentin [Neurontin] 300 mg PO BID 12/28/17 [History] Sevelamer Carbonate 800 mg PO TID 09/06/18 [History] Torsemide [Demadex] 40 mg PO DAILY 09/06/18 [History] Past Medical History - Past Health History Medical/Surgical History: Denies Medical/Surgical History HEENT History: Reports: Cataract, Impaired Vision Cardiovascular History: Reports: High Cholesterol Respiratory History: Reports: None Gastrointestinal History: Reports: GERD Genitourinary History: Reports: Acute Renal Failure, Dialysis, Other (See Below) Other Genitourinary History: Starting dialysis on the Oct. Other Musculoskeletal History: left lower leg amputated Neurological History: Reports: None Psychiatric History: Reports: None Endocrine/Metabolic History: Reports: Diabetes, Type II Hematologic History: Reports: None Immunologic History: Reports: None Oncologic (Cancer) History: Reports: None Dermatologic History: Reports: None - Past Surgical History Head Surgeries/Procedures: Reports: Shunt, Other (See Below) HEENT Surgical History: Reports: Cataract Surgery Musculoskeletal Surgical History: Reports: Amputation Social & Family History - Family History Family Medical History: Noncontributory - Caffeine Use Caffeine Use: Reports: Coffee - Living Situation & Occupation Living situation: Reports: , with Family Occupation: Disabled ED ROS GENERAL - Review of Systems Review Of Systems: Comprehensive ROS is negative, except as noted in HPI. ED EXAM, GENERAL - Physical Exam Exam: See Below Exam Limited By: No Limitations General Appearance: Alert, No Apparent Distress Eye Exam: Bilateral Eye: EOMI Ears: Normal External Exam, Normal TMs Nose: Normal Inspection Throat/Mouth: Normal Inspection Head: Atraumatic, Normocephalic Neck: Normal Inspection Respiratory/Chest: Chest Non-Tender, Decreased Breath Sounds. No: Wheezing, Stridor, Prolonged Expiration Cardiovascular: Normal Peripheral Pulses, Regular Rate, Rhythm, No Edema GI/Abdominal: Normal Bowel Sounds, Soft Extremities: Other (BKAleft) Neurological: Alert, Oriented, Inattentive, Slow to Respond, Memory Loss Recent Events Skin Exam: Warm, Dry, Intact, Pallor Course - Vital Signs Last Recorded V/S: Last Vital Signs Temp 36.3 C 06/09/19 08:11 Pulse 83 06/09/19 08:11 Resp 18 06/09/19 08:11 BP 123/61 06/09/19 08:11 Pulse Ox 91 L 06/09/19 08:11 - Orders/Labs/Meds Orders: Active Orders 24 hr Category Date Time Status EKG Documentation Completion [RC] URGENT Care 06/09/19 02:41 Active Glucose [Blood Glucose Check, Bedside] [RC] ONETIME Care 06/09/19 05:30 Active Low Salt [Sodium Restricted Diet] [DIET] Diet 06/09/19 Breakfast Active Labs: Laboratory Tests 06/09/19 06/09/19 06/09/19 Range/Units 02:57 02:57 02:57 WBC 4.6 L (5.0-10.0) 10^3/uL RBC 3.13 L (4.6-6.2) 10^6/uL Hgb 10.0 L D (14.0-18.0) g/dL Hct 29.9 L (40.0-54.0) % MCV 95.5 (80-100) fL MCH 31.9 (27.0-34.0) pg MCHC 33.4 (33.0-35.0) g/dL Plt Count 150 (150-450) 10^3/uL Neut % (Auto) 64.7 (42.2-75.2) % Lymph % (Auto) 22.4 (20.5-50.1) % [place] % (Auto) 9.4 H (2-8) % Eos % (Auto) 2.4 (1.0-3.0) % Baso % (Auto) 1.1 H (0.0-1.0) % Sodium 129 L (136-145) mmol/L Potassium 5.2 H (3.5-5.1) mmol/L Chloride 93 L (98-107) mmol/L Carbon Dioxide 26 (21-32) mmol/L Anion Gap 15.2 H (7-13) mEq/L BUN 73 H (7-18) mg/dL Creatinine 6.18 H* (0.70-1.30) mg/dL Est Cr Clr Drug Dosing 8.69 mL/min Estimated GFR (MDRD) 9 BUN/Creatinine Ratio 11.8 (No establ ref range) Glucose 434 H* (74-99) mg/dL POC Glucose (83-110) mg/dl Lactic Acid 1.9 (0.4-2.0) mmol/L Calcium 8.1 L (8.5-10.1) mg/dL Magnesium 2.0 (1.8-2.4) mg/dL Total Bilirubin 0.4 (0.2-1.0) mg/dL AST 13 L (15-37) U/L ALT 23 (16-63) U/L Alkaline Phosphatase 157 H (46-116) U/L Troponin I 0.041 (0.000-0.056) ng/mL B-Natriuretic Peptide 3110 H (0-100) pg/ml Total Protein 6.5 (6.4-8.2) g/dL Albumin 3.1 L (3.4-5.0) g/dL Globulin 3.4 Albumin/Globulin Ratio 0.91 Amylase 46 (25-115) U/L 06/09/19 06/09/19 Range/Units 06:01 07:36 WBC (5.0-10.0) 10^3/uL RBC (4.6-6.2) 10^6/uL Hgb (14.0-18.0) g/dL Hct (40.0-54.0) % MCV (80-100) fL MCH (27.0-34.0) pg MCHC (33.0-35.0) g/dL Plt Count (150-450) 10^3/uL Neut % (Auto) (42.2-75.2) % Lymph % (Auto) (20.5-50.1) % [place] % (Auto) (2-8) % Eos % (Auto) (1.0-3.0) % Baso % (Auto) (0.0-1.0) % Sodium (136-145) mmol/L Potassium (3.5-5.1) mmol/L Chloride (98-107) mmol/L Carbon Dioxide (21-32) mmol/L Anion Gap (7-13) mEq/L BUN (7-18) mg/dL Creatinine (0.70-1.30) mg/dL Est Cr Clr Drug Dosing mL/min Estimated GFR (MDRD) BUN/Creatinine Ratio (No establ ref range) Glucose (74-99) mg/dL POC Glucose 296 H 75 L (83-110) mg/dl Lactic Acid (0.4-2.0) mmol/L Calcium (8.5-10.1) mg/dL Magnesium (1.8-2.4) mg/dL Total Bilirubin (0.2-1.0) mg/dL AST (15-37) U/L ALT (16-63) U/L Alkaline Phosphatase (46-116) U/L Troponin I (0.000-0.056) ng/mL B-Natriuretic Peptide (0-100) pg/ml Total Protein (6.4-8.2) g/dL Albumin (3.4-5.0) g/dL Globulin Albumin/Globulin Ratio Amylase (25-115) U/L Meds: Medications Discontinued Medications Generic Name Dose Route Start Last Admin Trade Name Freq PRN Reason Stop Dose Admin Al Hydroxide/Mg Hydroxide 30 ml 06/09/19 04:02 06/09/19 04:56 Mag-Al Plus PO 06/09/19 04:03 30 ml ONETIME ONE Administration Furosemide 40 mg 06/09/19 03:46 06/09/19 04:00 Lasix IVPUSH 06/09/19 03:47 40 mg NOW ONE Administration Insulin Human Regular 10 unit 06/09/19 04:35 06/09/19 04:58 Humulin R IV 06/09/19 04:36 10 units ONETIME ONE Administration - Radiology Interpretation Free Text/Narrative:: mild CHF, bilateral pleural effusions see report - Re-Assessments/Exams Free Text/Narrative Re-Assessment/Exam: 06/09/19 04:41 TC Romy, no bed available, TC Beatriz no bed available, TC Lm, Determine patient stable, No urgent need for tx and would receive serve sooner locally. Family here, aware patient status, Vitals stable, No c/o chest pain. Minimal SOB with HOB elevated. Departure - Departure Disposition: Home, Self-Care 01 Condition: Good Clinical Impression: Orthopnea, Bilateral pleural effusion, Noncompliance of patient with renal dialysis CHF (congestive heart failure) Qualifiers: Heart failure type: other Qualified Code(s): I50.9 - Heart failure, unspecified - Discharge Information *PRESCRIPTION DRUG MONITORING PROGRAM REVIEWED*: No *COPY OF PRESCRIPTION DRUG MONITORING REPORT IN PATIENT ANTON: No Forms: ED Department Discharge Additional Instructions: limit fluid intake home medications as directed Go to dialysis appointments Sepsis Event Note - Focused Exam Vital Signs: Vital Signs Temp Pulse Resp BP Pulse Ox 06/09/19 08:11 36.3 C 83 18 123/61 91 L 06/09/19 05:45 84 18 133/63 94 L 06/09/19 04:59 36.6 C 82 14 137/74 97 06/09/19 02:53 36.3 C 88 24 H 149/77 H 96 Date Exam was Performed: 06/09/19 Time Exam was Performed: 05:22 <King Forrester - Last Filed: 06/09/19 10:15> Departure - Departure Time of Disposition: 10:15 Sepsis Event Note - Focused Exam Date Exam was Performed: 06/09/19 Time Exam was Performed: 08:13
[2019-06-09 03:30] LABS: ANION GAP 15.2 mEq/L (7-13)
[2019-06-09] MEDS ORDERED: Furosemide 40 MG/4 ML VIAL IVPUSH ONE (03:46)
[2019-06-09] MEDS ORDERED: Aluminum Hydroxide/Magnesium Hydroxide/Simethicone Susp 30 ML Cup PO ONE (04:02)
[2019-06-09] MEDS ORDERED: Insulin Regular, Human 100 Units/ML 3 ML Vial IV ONE (04:35)
[2019-06-09 08:12] VITALS: BP 123/61; PULSE 83
== END 2019-06-09 10:38 | disposition home or self-care (01) ==
LOC: DL.ED 03:00
DX: I50.9 Heart failure, unspecified (principal); E11.9 Type 2 diabetes mellitus without complications; Z91.14 Patient's other noncompliance with medication regimen; Z79.899 Other long term (current) drug therapy; Z98.49 Cataract extraction status, unspecified eye
CPT/HCPCS: 36415; 71045; 80053; 82150; 82962; 83605; 83735; 83880; 84484; 85025; 93005; 96374; 99284; 99285-25; A9270-GY; J1815-GY; J1940

== ENCOUNTER 2019-07-22 18:44 | Emergency (ER) | payer MEDICARE, MEDICAID ==
[2019-07-22 20:53] LABS: ANION GAP 11.5 mEq/L (7-13); CHLORIDE,CL 95 mmol/L (98-107); SODIUM,NA 131 mmol/L (136-145)
[2019-07-22 21:00] VITALS: BP 112/48; PULSE 88
--- NOTE | 2019-07-22 21:05 | EDM.PDOC ---
ED HPI GENERAL MEDICAL PROBLEM - General Chief Complaint: Respiratory Problem Stated Complaint: SHORTNESS OF BREATH. HARDTIME BREATH, COUGHING Time Seen by Provider: 07/22/19 21:04 Source of Information: Reports: Patient History Limitations: Reports: No Limitations - History of Present Illness INITIAL COMMENTS - FREE TEXT/NARRATIVE: onset SOB yesterday did go to dialysis. - Related Data Allergies Allergy/AdvReac Type Severity Reaction Status Date / Time Penicillins Allergy Hives Verified 07/22/19 19:07 Home Meds: Home Meds Acetaminophen/oxyCODONE [Percocet 325-10 MG] 10 - 325 mg PO ASDIRECTED 12/28/17 [History] Cyanocobalamin/Folic AC/Vit B6 [B Complex-Folic Acid] 1 cap PO DAILY 12/28/17 [ History] Gabapentin [Neurontin] 300 mg PO BID 12/28/17 [History] Sevelamer Carbonate 800 mg PO TID 09/06/18 [History] Torsemide [Demadex] 40 mg PO DAILY 09/06/18 [History] Past Medical History - Past Health History Medical/Surgical History: Denies Medical/Surgical History HEENT History: Reports: Cataract, Impaired Vision Cardiovascular History: Reports: High Cholesterol Respiratory History: Reports: None Gastrointestinal History: Reports: GERD Genitourinary History: Reports: Acute Renal Failure, Dialysis, Other (See Below) Other Genitourinary History: Starting dialysis on the Oct. Other Musculoskeletal History: left lower leg amputated Neurological History: Reports: None Psychiatric History: Reports: None Endocrine/Metabolic History: Reports: Diabetes, Type II Hematologic History: Reports: None Immunologic History: Reports: None Oncologic (Cancer) History: Reports: None Dermatologic History: Reports: None - Past Surgical History HEENT Surgical History: Reports: Cataract Surgery Musculoskeletal Surgical History: Reports: Amputation Social & Family History - Family History Family Medical History: Noncontributory - Tobacco Use Smoking Status *Q: Current Every Day Smoker Years of Tobacco use: 60 Packs/Tins Daily: 0.5 - Caffeine Use Caffeine Use: Reports: Coffee - Recreational Drug Use Recreational Drug Use: No - Living Situation & Occupation Living situation: Reports: , with Family Occupation: Disabled ED ROS GENERAL - Review of Systems Review Of Systems: Comprehensive ROS is negative, except as noted in HPI. ED EXAM, GENERAL - Physical Exam Exam: See Below Exam Limited By: No Limitations General Appearance: Alert, WD/WN, Mild Distress, Other (discomfort) Ears: Hearing Grossly Normal Throat/Mouth: Normal Voice, No Airway Compromise Head: Atraumatic Neck: Non-Tender, Full Range of Motion Respiratory/Chest: No Respiratory Distress, Rhonchi Cardiovascular: Regular Rate, Rhythm GI/Abdominal: Soft, Non-Tender Extremities: Pedal Edema, Other (1+ bilateral) Neurological: Alert, Oriented, Normal Cognition, Normal Gait, No Motor/Sensory Deficits Psychiatric: Flat Affect Skin Exam: Warm, Dry, Normal Color Lymphatic: No Adenopathy Course - Vital Signs Last Recorded V/S: Last Vital Signs Temp 36.1 C 07/22/19 20:59 Pulse 88 07/22/19 20:59 Resp 20 07/22/19 20:59 BP 112/48 L 07/22/19 20:59 Pulse Ox 97 07/22/19 20:59 - Orders/Labs/Meds Orders: Active Orders 24 hr Category Date Time Status EKG 12 Lead [EKG Documentation Completion] [RC] STAT Care 07/22/19 21:00 Active Labs: Laboratory Tests 07/22/19 07/22/19 Range/Units 20:25 20:25 WBC 2.8 L (5.0-10.0) 10^3/uL RBC 3.15 L (4.6-6.2) 10^6/uL Hgb 10.0 L (14.0-18.0) g/dL Hct 30.4 L (40.0-54.0) % MCV 96.5 (80-100) fL MCH 31.7 (27.0-34.0) pg MCHC 32.9 L (33.0-35.0) g/dL Plt Count 127 L (150-450) 10^3/uL Neut % (Auto) 49.8 (42.2-75.2) % Lymph % (Auto) 30.9 (20.5-50.1) % [place] % (Auto) 14.9 H (2-8) % Eos % (Auto) 1.1 (1.0-3.0) % Baso % (Auto) 3.3 H (0.0-1.0) % Sodium 131 L (136-145) mmol/L Potassium 4.5 (3.5-5.1) mmol/L Chloride 95 L (98-107) mmol/L Carbon Dioxide 29 (21-32) mmol/L Anion Gap 11.5 (7-13) mEq/L BUN 32 H D (7-18) mg/dL Creatinine 4.05 H D (0.70-1.30) mg/dL Est Cr Clr Drug Dosing TNP Estimated GFR (MDRD) 15 BUN/Creatinine Ratio 7.9 (No establ ref range) Glucose 400 H (74-99) mg/dL Calcium 8.4 L (8.5-10.1) mg/dL Total Bilirubin 0.5 (0.2-1.0) mg/dL AST 19 (15-37) U/L ALT 25 (16-63) U/L Alkaline Phosphatase 174 H (46-116) U/L Troponin I 0.061 H* (0.000-0.056) ng/mL B-Natriuretic Peptide > 5000 H (0-100) pg/ml Total Protein 6.3 L (6.4-8.2) g/dL Albumin 2.7 L (3.4-5.0) g/dL Globulin 3.6 Albumin/Globulin Ratio 0.75 Meds: Medications Discontinued Medications Generic Name Dose Route Start Last Admin Trade Name Freq PRN Reason Stop Dose Admin Hydrocodone Bitart/Acetaminophen 1 tab 07/22/19 21:42 07/22/19 21:52 [place] 325-10 Mg PO 07/22/19 21:43 1 tab ONETIME ONE Administration Furosemide 40 mg 07/22/19 21:42 07/22/19 21:57 Lasix IVPUSH 07/22/19 21:43 40 mg NOW ONE Administration Insulin Human Regular 5 unit 07/22/19 21:42 07/22/19 21:54 Humulin R IV 07/22/19 21:43 5 units ONETIME ONE Administration - Re-Assessments/Exams Free Text/Narrative Re-Assessment/Exam: 07/22/19 21:41 results discussed with pt who states he gets restless legs and out of pain meds. Departure - Departure Time of Disposition: 22:25 Disposition: Home, Self-Care 01 Condition: Good Clinical Impression: ESRD (end stage renal disease) on dialysis, Diabetes mellitus CHF (congestive heart failure) Qualifiers: Heart failure type: other Qualified Code(s): I50.9 - Heart failure, unspecified - Discharge Information Referrals: PCP,None [Primary Care Provider] - Forms: ED Department Discharge Additional Instructions: 1) follow up at clinic 2) don not forget dialysis Wednesday Sepsis Event Note - Evaluation Sepsis Screening Result: No Definite Risk - Focused Exam Vital Signs: Vital Signs Temp Pulse Resp BP Pulse Ox 07/22/19 20:59 36.1 C 88 20 112/48 L 97 07/22/19 19:02 36.2 C 90 16 138/70 96 Date Exam was Performed: 07/22/19 Time Exam was Performed: 22:40 - My Orders Last 24 Hours: My Active Orders 07/22/19 21:00 EKG 12 Lead [EKG Documentation Completion] [RC] STAT - Assessment/Plan Last 24 Hours: My Active Orders 07/22/19 21:00 EKG 12 Lead [EKG Documentation Completion] [RC] STAT
[2019-07-22] MEDS ORDERED: Insulin Regular, Human 100 Units/ML 3 ML Vial IV ONE (21:42)
[2019-07-22] MEDS ORDERED: Acetaminophen/HYDROcodone 325-10 MG Tab PO ONE (21:42)
[2019-07-22] MEDS ORDERED: Furosemide 40 MG/4 ML VIAL IVPUSH ONE (21:42)
== END 2019-07-22 22:25 | disposition home or self-care (01) ==
LOC: DL.ED 18:44
DX: I13.2 Hypertensive heart and chronic kidney disease with heart failure and with stage 5 chronic kidney disease, or end stage renal disease (principal); E11.22 Type 2 diabetes mellitus with diabetic chronic kidney disease; N18.6 End stage renal disease; I50.9 Heart failure, unspecified; F17.210 Nicotine dependence, cigarettes, uncomplicated; Z88.0 Allergy status to penicillin; Z79.899 Other long term (current) drug therapy
CPT/HCPCS: 36415; 71046; 80053; 82962; 83880; 84484; 85025; 93005; 96374; 99285; A9270; J1815; J1940; 99283

== ENCOUNTER 2019-07-24 14:19 | Emergency (ER) | payer MEDICARE, MEDICAID ==
[2019-07-24 16:28] VITALS: BP 138/64; PULSE 79
--- NOTE | 2019-07-24 16:29 | EDM.PDOC ---
ED HPI GENERAL MEDICAL PROBLEM - General Chief Complaint: Neurological Problem Time Seen by Provider: 07/24/19 16:15 Source of Information: Reports: Family (Patient's daughter spoke for the patient as she is his caregiver) History Limitations: Reports: Altered Mental Status - History of Present Illness INITIAL COMMENTS - FREE TEXT/NARRATIVE: This 74 yo male patient was sent to the ED from the Dialysis Unit due to altered mentation. The patient's daughter reports the patient has been different since Wednesday. The patient was seen in the ED on Wednesday and started on lasix. The patient's daughter reports the patient has not been eating or drinking normally since that time. The patient has been sleeping most of the time. The daughter is worried about him possibly having a stroke. The Gloria Lagunas (PA with the Dialysis Unit) called about 1 1/2 hours prior to the patient coming to the ED. She reported that the patient appears to be in fluid overload, is more confused than normal and is getting a full run in dialysis today. The patient has missed a number of dialysis appointment (had dialysis on the , and the ). She was not too sure about the patient's current living arrangements and if the patient is getting his medications as prescribed. Onset Date: 07/22/19 Duration: Constant, Getting Worse Location: Reports: Generalized Quality: Reports: Other Severity: Moderate Improves with: Reports: None Worsens with: Reports: None Context: Reports: Other Associated Symptoms: Reports: No Other Symptoms - Related Data Allergies Allergy/AdvReac Type Severity Reaction Status Date / Time Penicillins Allergy Hives Verified 07/24/19 16:19 Home Meds: Home Meds Acetaminophen/oxyCODONE [Percocet 325-10 MG] 10 - 325 mg PO ASDIRECTED 12/28/17 [History] Cyanocobalamin/Folic AC/Vit B6 [B Complex-Folic Acid] 1 cap PO DAILY 12/28/17 [ History] Gabapentin [Neurontin] 300 mg PO BID 12/28/17 [History] Sevelamer Carbonate 800 mg PO TID 09/06/18 [History] Torsemide [Demadex] 40 mg PO DAILY 09/06/18 [History] Past Medical History - Past Health History Medical/Surgical History: Denies Medical/Surgical History HEENT History: Reports: Cataract, Impaired Vision Cardiovascular History: Reports: High Cholesterol Respiratory History: Reports: None Gastrointestinal History: Reports: GERD Genitourinary History: Reports: Acute Renal Failure, Dialysis, Other (See Below) Other Genitourinary History: Starting dialysis on the Oct. Other Musculoskeletal History: left lower leg amputated Neurological History: Reports: None Psychiatric History: Reports: None Endocrine/Metabolic History: Reports: Diabetes, Type II Hematologic History: Reports: None Immunologic History: Reports: None Oncologic (Cancer) History: Reports: None Dermatologic History: Reports: None - Past Surgical History HEENT Surgical History: Reports: Cataract Surgery Musculoskeletal Surgical History: Reports: Amputation Social & Family History - Family History Family Medical History: Noncontributory - Caffeine Use Caffeine Use: Reports: Coffee - Living Situation & Occupation Living situation: Reports: , with Family Occupation: Disabled ED ROS GENERAL - Review of Systems Review Of Systems: Comprehensive ROS is negative, except as noted in HPI. - Physical Exam Exam: See Below Exam Limited By: Altered Mental Status General Appearance: Mild Distress Eye Exam: Bilateral Eye: EOMI, Normal Inspection, PERRL Ears: Normal External Exam, Normal Canal, Hearing Grossly Normal, Normal TMs Nose: Normal Inspection, Normal Mucosa, No Blood Throat/Mouth: Normal Inspection, Normal Lips, Normal Teeth, Normal Gums, Normal Oropharynx, Normal Voice, No Airway Compromise Head Exam: Atraumatic, Normocephalic Neck: Normal Inspection, Supple, Non-Tender, Full Range of Motion Respiratory/Chest: No Respiratory Distress, Lungs Clear, Normal Breath Sounds, No Accessory Muscle Use, Chest Non-Tender Cardiovascular: Normal Peripheral Pulses, Regular Rate, Rhythm, No Edema, No Gallop, No JVD, No Murmur, No Rub GI/Abdominal: Normal Bowel Sounds, Soft, Non-Tender, No Organomegaly, No Distention, No Abnormal Bruit, No Mass (Male) Exam: Deferred Rectal (Males) Exam: Deferred Neuro Exam (Abbreviated): Slow to Respond Back Exam: Normal Inspection, Full Range of Motion, NT Extremities: Normal Inspection, Normal Range of Motion, Non-Tender, No Pedal Edema, Normal Capillary Refill Psychiatric: Normal Affect, Normal Mood Skin Exam: Warm, Dry, Intact, Normal Color, No Rash Course - Vital Signs Last Recorded V/S: Last Vital Signs Temp 36.4 C 07/24/19 16:19 Pulse 79 07/24/19 16:19 Resp 20 07/24/19 16:19 BP 138/64 07/24/19 16:19 Pulse Ox 88 L 07/24/19 16:19 - Orders/Labs/Meds Orders: Active Orders 24 hr Category Date Time Status EKG Documentation Completion [RC] URGENT Care 07/24/19 16:01 Active Chest 1V Frontal [CR] Urgent Exams 07/24/19 16:01 Ordered Head w wo Cont [CT] Urgent Exams 07/24/19 16:49 Stop Req Head wo Cont [CT] Urgent Exams 07/24/19 17:26 Ordered CULTURE BLOOD [BC] Stat Lab 07/24/19 16:01 Ordered Labs: Laboratory Tests 07/24/19 07/24/19 07/24/19 Range/Units 16:09 16:09 16:09 WBC 1.6 L (5.0-10.0) 10^3/uL RBC 3.05 L (4.6-6.2) 10^6/uL Hgb 9.7 L (14.0-18.0) g/dL Hct 29.2 L (40.0-54.0) % MCV 95.7 (80-100) fL MCH 31.8 (27.0-34.0) pg MCHC 33.2 (33.0-35.0) g/dL Plt Count 125 L (150-450) 10^3/uL Neut % (Auto) 18.0 L (42.2-75.2) % Lymph % (Auto) 52.2 H (20.5-50.1) % Karnes % (Auto) 26.1 H (2-8) % Eos % (Auto) 1.2 (1.0-3.0) % Baso % (Auto) 2.5 H (0.0-1.0) % Sodium 135 L (136-145) mmol/L Potassium 3.1 L (3.5-5.1) mmol/L Chloride 97 L (98-107) mmol/L Carbon Dioxide 29 (21-32) mmol/L Anion Gap 12.1 (7-13) mEq/L BUN 17 (7-18) mg/dL Creatinine 2.43 H D (0.70-1.30) mg/dL Est Cr Clr Drug Dosing TNP Estimated GFR (MDRD) 26 BUN/Creatinine Ratio 7.0 (No establ ref range) Glucose 239 H (74-99) mg/dL Lactic Acid 1.0 (0.4-2.0) mmol/L Calcium 8.0 L (8.5-10.1) mg/dL Total Bilirubin 0.6 (0.2-1.0) mg/dL AST 30 (15-37) U/L ALT 46 (16-63) U/L Alkaline Phosphatase 207 H (46-116) U/L Ammonia (11-32) umol/L Troponin I 0.059 H* (0.000-0.056) ng/mL B-Natriuretic Peptide 4330 H (0-100) pg/ml Total Protein 6.6 (6.4-8.2) g/dL Albumin 2.9 L (3.4-5.0) g/dL Globulin 3.7 Albumin/Globulin Ratio 0.78 04//20 Range/Units 16:39 WBC (5.0-10.0) 10^3/uL RBC (4.6-6.2) 10^6/uL Hgb (14.0-18.0) g/dL Hct (40.0-54.0) % MCV (80-100) fL MCH (27.0-34.0) pg MCHC (33.0-35.0) g/dL Plt Count (150-450) 10^3/uL Neut % (Auto) (42.2-75.2) % Lymph % (Auto) (20.5-50.1) % Karnes % (Auto) (2-8) % Eos % (Auto) (1.0-3.0) % Baso % (Auto) (0.0-1.0) % Sodium (136-145) mmol/L Potassium (3.5-5.1) mmol/L Chloride (98-107) mmol/L Carbon Dioxide (21-32) mmol/L Anion Gap (7-13) mEq/L BUN (7-18) mg/dL Creatinine (0.70-1.30) mg/dL Est Cr Clr Drug Dosing Estimated GFR (MDRD) BUN/Creatinine Ratio (No establ ref range) Glucose (74-99) mg/dL Lactic Acid (0.4-2.0) mmol/L Calcium (8.5-10.1) mg/dL Total Bilirubin (0.2-1.0) mg/dL AST (15-37) U/L ALT (16-63) U/L Alkaline Phosphatase (46-116) U/L Ammonia 12 (11-32) umol/L Troponin I (0.000-0.056) ng/mL B-Natriuretic Peptide (0-100) pg/ml Total Protein (6.4-8.2) g/dL Albumin (3.4-5.0) g/dL Globulin Albumin/Globulin Ratio - Radiology Interpretation Free Text/Narrative:: PROCEDURE INFORMATION: Exam: XR Chest, 1 View Exam date and time: 07/24/2019 4:17 PM Age: 74 years old Clinical indication: Shortness of breath TECHNIQUE: Imaging protocol: XR of the chest Views: 1 view. COMPARISON: CR Chest 2V 07/22/2019 8:47 PM FINDINGS: Lungs: Again noted is prominence of the pulmonary vasculature. This finding is more pronounced in the interval. There is increasing perihilar consolidation. Pleural space: Unremarkable. No pleural effusion. No pneumothorax. Heart/Mediastinum: Unremarkable. No cardiomegaly. Bones/joints: Unremarkable. IMPRESSION: Worsening pulmonary vascular congestion with perihilar edema. Thank you for allowing us to participate in the care of your patient. Dictated and Authenticated by: Jona Robertson MD PROCEDURE INFORMATION: Exam: CT Head Without Contrast Exam date and time: 07/24/2019 5:09 PM Age: 74 years old Clinical indication: Altered mental status/memory loss; Confusion or disorientation TECHNIQUE: Imaging protocol: Computed tomography of the head without contrast. Radiation optimization: All CT scans at this facility use at least one of these dose optimization techniques: automated exposure control; mA and/or kV adjustment per patient size (includes targeted exams where dose is matched to clinical indication); or iterative reconstruction. COMPARISON: CT Head wo Cont 01/01/2018 4:11 PM FINDINGS: Limitations: Some of the images are limited by motion artifact. Brain: The brain is stable in appearance. There is no intracranial hemorrhage. There is no acute edema, mass effect or shift of the normally midline structures. The camargo-white matter differentiation is preserved. 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 There is an old lacunar infarct in the right michelle radiata. There are patchy areas of diminished attenuation in the periventricular and subcortical white matter, a nonspecific finding thought to most likely reflect chronic microvascular ischemic change. There are no extra-axial fluid collections. Ventricles: The ventricles and sulci are age appropriate. Bones/joints: The calvarium is intact. Sinuses: There is circumferential mucosal thickening in the left maxillary sinus. Mastoid air cells: The mastoid air cells and middle ear cavities are normally aerated. Soft tissues: No soft tissue hematoma is identified. There are surgical clips anterior to the right ear. Vasculature: Dense atherosclerotic calcifications are noted, especially in the bilateral vertebral and internal carotid arteries as well as the arteries of the scalp. IMPRESSION: Allowing for motion artifact, there is no definite evidence for acute intracranial pathology. An acute infarct may not be visible on CT for up to 24-48 hours. If there is high clinical suspicion for acute infarct, a follow-up head CT or brain MRI should be considered. Thank you for allowing us to participate in the care of your patient. Dictated and Authenticated by: Ghada Napier MD 07/24/2019 5:41 PM Central Time ([place] & [place]) Departure - Departure Time of Disposition: 18:10 Disposition: DC/Tfer to [facility] 02 Condition: Poor Clinical Impression: CKD (chronic kidney disease) requiring chronic dialysis Altered mental status Qualifiers: Altered mental status type: transient alteration of awareness Qualified Code(s) : R40.4 - Transient alteration of awareness - Discharge Information *PRESCRIPTION DRUG MONITORING PROGRAM REVIEWED*: Not Applicable *COPY OF PRESCRIPTION DRUG MONITORING REPORT IN PATIENT ANTON: Not Applicable Forms: [facility] Plan Goals: Discussed the patient's history, examination, lab, EKG, x-ray and CT results with Dr. Sutherland ([facility] [place] Hospitalist). Dr. Sutherland accepted the patient for continued evaluation and management as an inpatient at [facility] in [place]. The patient will be transferred by [facility]. Sepsis Event Note - Focused Exam Vital Signs: Vital Signs Temp Pulse Resp BP Pulse Ox 07/24/19 16:19 36.4 C 79 20 138/64 88 L Date Exam was Performed: 07/24/19 Time Exam was Performed: 17:51 - My Orders Last 24 Hours: My Active Orders 07/24/19 16:01 EKG Documentation Completion [RC] URGENT Chest 1V Frontal [CR] Urgent CULTURE BLOOD [BC] Stat 07/24/19 16:49 Head w wo Cont [CT] Urgent 07/24/19 17:26 Head wo Cont [CT] Urgent - Assessment/Plan Last 24 Hours: My Active Orders 07/24/19 16:01 EKG Documentation Completion [RC] URGENT Chest 1V Frontal [CR] Urgent CULTURE BLOOD [BC] Stat 07/24/19 16:49 Head w wo Cont [CT] Urgent 07/24/19 17:26 Head wo Cont [CT] Urgent
[2019-07-24 16:38] LABS: ANION GAP 12.1 mEq/L (7-13); CHLORIDE,CL 97 mmol/L (98-107); SODIUM,NA 135 mmol/L (136-145)
[2019-07-24] MEDS ORDERED: Potassium Chloride 10 MEQ in Premix Bag 1 BAG IV ONE (18:41)
== END 2019-07-24 20:18 ==
LOC: DL.ED 14:19
DX: E11.22 Type 2 diabetes mellitus with diabetic chronic kidney disease (principal); N18.9 Chronic kidney disease, unspecified; Z99.81 Dependence on supplemental oxygen; Z88.0 Allergy status to penicillin; Z79.899 Other long term (current) drug therapy
CPT/HCPCS: 36415; 70450; 71045; 80053; 82140; 83605; 83880; 84484; 85025; 87040; 93005; 96365; 99284; 99285; J3480; 87077

== ENCOUNTER 2019-08-08 12:41 | Emergency (ER) | payer MEDICARE, MEDICAID ==
--- NOTE | 2019-08-08 12:46 | EDM.PDOC ---
ED HPI GENERAL MEDICAL PROBLEM - General Chief Complaint: General Stated Complaint: AMBULANCE Time Seen by Provider: 08/08/19 12:46 Source of Information: Reports: Patient, EMS, Family, Old Records, RN, RN Notes Reviewed History Limitations: Reports: Altered Mental Status - History of Present Illness INITIAL COMMENTS - FREE TEXT/NARRATIVE: Pt arrives to ER from home by [facility] with report that his daughter called 911 reporting pt's right toes were black, he had confusion/altered mental status, was moaning in pain, and has missed dialysis. Pt was transferred from this ER to [facility] on 07/24/19 and just recently was discharged home after being treated for fluid overload and receiving inpatient dialysis. Pt's D.P.A. daughter states the pt is DNR/DNI but can provide no other history because she was not at the pt's house today and was not the daughter that called the ambulance. The pt states that he doesn't want anything done, he just wants to be let go so he won't be miserable any more, and to "just let me go home". When asked what he means by "let me go home", the pt states to let him . I contacted Alice Ferrell, pt's daughter who is the D.P.A. by phone. She would like to have her father on hospice because he refuses to go to most of his dialysis, and does not want any any further medical treatment, but he also doesn't want to suffer. The family has discussed the situation and wishes to bring the pt home and proceed with hospice care. I called Selene Bedoya EMPLOYMENT CONSULTANT, she is familiar with the pt and agrees to make a hospice referral, and will coordinate care with the pt's family. Onset: Unknown/Unsure Duration: Chronic, Recurring Location: Reports: Generalized Severity: Severe Improves with: Reports: None Worsens with: Reports: Other (Missing dialysis) Associated Symptoms: Reports: No Other Symptoms - Related Data Allergies Allergy/AdvReac Type Severity Reaction Status Date / Time Penicillins Allergy Hives Verified 08/08/19 13:12 Home Meds: Home Meds Acetaminophen/oxyCODONE [Percocet 325-10 MG] 10 - 325 mg PO ASDIRECTED 12/28/17 [History] Cyanocobalamin/Folic AC/Vit B6 [B Complex-Folic Acid] 1 cap PO DAILY 12/28/17 [ History] Gabapentin [Neurontin] 300 mg PO BID 12/28/17 [History] Sevelamer Carbonate 800 mg PO TID 09/06/18 [History] Torsemide [Demadex] 40 mg PO DAILY 09/06/18 [History] Past Medical History - Past Health History Medical/Surgical History: Denies Medical/Surgical History HEENT History: Reports: Cataract, Impaired Vision Cardiovascular History: Reports: High Cholesterol Respiratory History: Reports: None Gastrointestinal History: Reports: GERD Genitourinary History: Reports: Acute Renal Failure, Chronic Renal Insuffiency, Dialysis, Renal Disease Other Musculoskeletal History: left lower leg amputated Neurological History: Reports: None Psychiatric History: Reports: Dementia, Depression Endocrine/Metabolic History: Reports: Diabetes, Type II Hematologic History: Reports: None Immunologic History: Reports: None Oncologic (Cancer) History: Reports: None Dermatologic History: Reports: None - Past Surgical History HEENT Surgical History: Reports: Cataract Surgery Musculoskeletal Surgical History: Reports: Amputation Social & Family History - Family History Family Medical History: Noncontributory - Caffeine Use Caffeine Use: Reports: Coffee - Living Situation & Occupation Living situation: Reports: , with Family Occupation: Disabled ED ROS GENERAL - Review of Systems Review Of Systems: Unable To Obtain Reason Not Obtained: Altered mental status ED EXAM, GENERAL - Physical Exam Exam: See Below Exam Limited By: Altered Mental Status General Appearance: Alert, Lethargic, Thin, Other (Unkept, and chronically ill but non-toxic appearing.) Eye Exam: Bilateral Eye: Normal Inspection (No scleral icterus.) Ears: Hearing Grossly Normal Nose: Normal Inspection Throat/Mouth: Normal Voice, No Airway Compromise Head: Atraumatic, Normocephalic Neck: Normal Inspection, Non-Tender, Full Range of Motion Respiratory/Chest: Chest Non-Tender, Decreased Breath Sounds, Crackles, Rales, Other (Intermittent episodes of apnea.) Cardiovascular: Regular Rate, Rhythm, No Edema GI/Abdominal: Normal Bowel Sounds, Soft, Non-Tender, No Distention. No: Guarding, Rigid, Rebound Extremities: Slow Capillary Refill, Other (Left BKA. Rt toes have some dirt and dried blood, but when washed off they are not black as previously reported.). No: Joint Swelling, Increased Warmth, Mottled, Pallor, Redness Neurological: Alert, Oriented (to person, and ER/hospital), No Motor/Sensory Deficits, Confused (at times), Disoriented (to time/date), Other (generalized weakness, physical deconditioning) Psychiatric: Depressed Mood, Flat Affect, Tearful Skin Exam: Warm, Dry, Normal Color. No: Ecchymosis, Erythema, Jaundice, Mottled , Pallor, Petechiae Course - Vital Signs Last Recorded V/S: Last Vital Signs Temp 98.6 F 08/08/19 12:45 Pulse 90 08/08/19 12:45 Resp 14 08/08/19 12:45 BP 128/72 08/08/19 12:45 Pulse Ox 98 08/08/19 12:45 - Orders/Labs/Meds Orders: Active Orders 24 hr Category Date Time Status Blood Glucose Check, Bedside [RC] ONETIME Care 08/08/19 12:47 Active Labs: Laboratory Tests 08/08/19 08/08/19 08/08/19 Range/Units 12:55 12:55 12:55 WBC 7.2 (5.0-10.0) 10^3/uL RBC 2.64 L (4.6-6.2) 10^6/uL Hgb 8.5 L (14.0-18.0) g/dL Hct 24.8 L (40.0-54.0) % MCV 93.9 (80-100) fL MCH 32.2 (27.0-34.0) pg MCHC 34.3 (33.0-35.0) g/dL Plt Count 171 (150-450) 10^3/uL Neut % (Auto) 74.5 (42.2-75.2) % Lymph % (Auto) 13.8 L (20.5-50.1) % Hettinger % (Auto) 8.6 H (2-8) % Eos % (Auto) 2.5 (1.0-3.0) % Baso % (Auto) 0.6 (0.0-1.0) % Sodium 125 L D (136-145) mmol/L Potassium 5.0 D (3.5-5.1) mmol/L Chloride 91 L (98-107) mmol/L Carbon Dioxide 26 (21-32) mmol/L Anion Gap 13.0 (7-13) mEq/L BUN 45 H D (7-18) mg/dL Creatinine 4.78 H D (0.70-1.30) mg/dL Est Cr Clr Drug Dosing 11.09 mL/min Estimated GFR (MDRD) 12 BUN/Creatinine Ratio 9.4 (No establ ref range) Glucose 430 H* (74-99) mg/dL Lactic Acid 0.7 (0.4-2.0) mmol/L Calcium 8.4 L (8.5-10.1) mg/dL Phosphorus 4.2 (2.6-4.7) mg/dL Magnesium 1.8 (1.8-2.4) mg/dL Total Bilirubin 0.4 (0.2-1.0) mg/dL AST 17 (15-37) U/L ALT 22 (16-63) U/L Alkaline Phosphatase 148 H (46-116) U/L B-Natriuretic Peptide > 5000 H (0-100) pg/ml Total Protein 6.2 L (6.4-8.2) g/dL Albumin 2.4 L (3.4-5.0) g/dL Globulin 3.8 Albumin/Globulin Ratio 0.63 Ethyl Alcohol < 3 (0) mg/dL Meds: Medications Discontinued Medications Generic Name Dose Route Start Last Admin Trade Name Freq PRN Reason Stop Dose Admin Morphine Sulfate 2 mg 08/08/19 13:03 08/08/19 13:15 Morphine IVPUSH 08/08/19 13:04 2 mg ONETIME ONE Administration Ondansetron HCl 4 mg 08/08/19 13:04 08/08/19 13:12 Zofran IV 08/08/19 13:05 4 mg ONETIME ONE Administration - Radiology Interpretation Free Text/Narrative:: Chest X-ray: fluid overload per Rad. report. - Re-Assessments/Exams Free Text/Narrative Re-Assessment/Exam: 08/08/19 13:46 Pt with generalized "total body pain" and fluid overload as a result of non- compliance with dialysis. He does not want to be transferred to [facility] for inpatient emergent dialysis. Pt insists he just wants to go home and be left alone and made comfortable. He refuses any further medical care. Pt's family is accepting of the fact that the pt is "near the end" and agree that they would like to maintain DNR/DNI status, and would like to proceed with comfort care and a hospice consult. Departure - Departure Time of Disposition: 13:51 Disposition: Home, Self-Care 01 Condition: Poor Clinical Impression: ESRD (end stage renal disease) on dialysis, Hyponatremia, End of life care Acute on chronic congestive heart failure Qualifiers: Heart failure type: unspecified Qualified Code(s): I50.9 - Heart failure, unspecified Altered mental status Qualifiers: Altered mental status type: transient alteration of awareness Qualified Code(s) : R40.4 - Transient alteration of awareness - Discharge Information *PRESCRIPTION DRUG MONITORING PROGRAM REVIEWED*: Not Applicable Instructions: End-of-Life Care, Hospice Forms: ED Department Discharge Additional Instructions: Selene Bedoya from [facility] in [place] will place a hospice referral and will provide care and orders as needed with the goal of keeping you comfortable at home. Sepsis Event Note - Focused Exam Vital Signs: Vital Signs Temp Pulse Resp BP Pulse Ox 08/08/19 12:45 98.6 F 90 14 128/72 98 Date Exam was Performed: 08/08/19 Time Exam was Performed: 13:40 - My Orders Last 24 Hours: My Active Orders 08/08/19 12:47 Blood Glucose Check, Bedside [RC] ONETIME - Assessment/Plan Last 24 Hours: My Active Orders 08/08/19 12:47 Blood Glucose Check, Bedside [RC] ONETIME
[2019-08-08] MEDS ORDERED: Morphine 2 MG/ML Syringe IVPUSH ONE (13:03)
[2019-08-08] MEDS ORDERED: Ondansetron 4 MG/2 ML SDV IV ONE (13:04)
[2019-08-08 13:12] VITALS: BP 128/72; PULSE 90
[2019-08-08 13:27] LABS: CHLORIDE,CL 91 mmol/L (98-107); SODIUM,NA 125 mmol/L (136-145)
--- NOTE | 2019-08-08 13:35 | CR ---
EXAMINATION: Chest 1V Frontal SEX: Male AGE: 74 years CLINICAL HISTORY: 74-year-old male dialysis patient ("missed multiple" treatments) complaining of shortness of breath (SOB) comparison CXR exams and June,). Interpretation: Abnormal. Florid pulmonary vascular congestion with cephalization of flow indicating definite fluid overload since 21 July comparison film. Bibasilar dependent subpulmonic pleural effusions. Underlying lower lobe atelectasis or infiltrate are differential considerations however this markedly abnormal exam is relatively unchanged since 24 July 2019 exam. CONCLUSION: Fluid overload.
== END 2019-08-08 14:19 | disposition home or self-care (01) ==
LOC: DL.ED 12:41
DX: E11.22 Type 2 diabetes mellitus with diabetic chronic kidney disease (principal); N18.6 End stage renal disease; I50.9 Heart failure, unspecified; E87.1 Hypo-osmolality and hyponatremia; F03.90 Unspecified dementia, unspecified severity, without behavioral disturbance, psychotic disturbance, mood disturbance, and anxiety; Z88.0 Allergy status to penicillin; Z79.899 Other long term (current) drug therapy
CPT/HCPCS: 36415; 71045; 80053; 80307; 82962; 83605; 83735; 83880; 84100; 85025; 96374; 96375; 99285; J2270; J2405